=== PATIENT | male | born 1970 | race Caucasian/White ===

== ENCOUNTER 2024-07-23 15:47 | Emergency (ER) | payer SELFPAY ==
[~2024-07-23] VITALS: Ht 167.6 cm; Wt 72.0 kg
[2024-07-23 15:50] VITALS: O2SAT 99
[2024-07-23 15:53] VITALS: BP 150/89; PULSE 119; RESP 22; TEMP 36.8; O2SAT 97
[2024-07-23 16:26] LABS: BASOPHILS % 0.2 % (0.0-2.0); EOSINOPHILS % 0.2 % (0.0-5.0); HEMATOCRIT. 41.7 % (42.0-52.0); HEMOGLOBIN. 14.2 g/dL (14.0-18.0); MEAN CORPUSCULAR HEMOGLOBIN 32.6 pg (28.0-32.0); MEAN CORPUSCULAR HGB CONC 34.1 g/dL (31.0-37.0); MEAN CORPUSCULAR VOLUME 95.5 fL (80.0-94.0); MEAN PLATELET VOLUME 8.6 fl (7.4-10.4); MONOCYTES % 3.9 % (2.0-8.0); NEUTROPHILS % 82.7 % (40.0-76.0); PLATELET 271 x1000/uL (130-400); RED BLOOD CELL COUNT 4.37 mill/uL (4.7-6.1); RED CELL DISTRIBUTION WIDTH 13.8 % (11.6-14.6); WHITE BLOOD COUNT 12.5 x1000/uL (4.5-11.0)
[2024-07-23 16:33] LABS: CHLORIDE 103 mEq/L (98-107); POTASSIUM 4.1 mEq/L (3.5-5.1); SODIUM 136 mEq/L (136-145)
[2024-07-23 16:34] LABS: CARBON DIOXIDE 24 mEq/L (21-32)
[2024-07-23 16:35] LABS: CALCIUM 9.1 mg/dL (8.7-10.4)
[2024-07-23 16:39] LABS: GLUCOSE 104 mg/dL (70-105); UREA NITROGEN BLOOD 10 mg/dL (9-23)
[2024-07-23 16:49] LABS: ETHANOL BLOOD 320 mg/dL (<10)
[2024-07-23] MEDS ORDERED: TOPUD MT (19:20)
== END 2024-07-23 20:53 | disposition home or self-care (01) ==
LOC: ER 15:47
DX: F10.129 Alcohol abuse with intoxication, unspecified (principal); R07.9 Chest pain, unspecified; Y90.9 Presence of alcohol in blood, level not specified
CPT/HCPCS: 36415; 71045; 80048; 80320; 85025; 93005; 99285; G0480